=== PATIENT | female | born 1980 | race Caucasian/White ===

== ENCOUNTER → 2016-10-01 | Outpatient (CLI) | payer BC ==
[~2016-10-01] MED LIST: ENDOCET 5-3251 EACH PO; LEVAQUIN750 MG PO; MUCINEX DM ER1 EACH PO; Motrin PO; ORTHO CYCLEN1 TABLET PO; ROBITUSSIN100 MG/5 M PO; TESSALON PERLE100 MG PO; VENTOLIN HFA18 GM IH
== END | disposition home or self-care (01) ==
LOC: RES 09:49
DX: J45.909 Unspecified asthma, uncomplicated (principal)
CPT/HCPCS: 94070